=== PATIENT | male | born 1945 | race Caucasian/White ===

== ENCOUNTER 2016-11-03 09:20 | Day surgery (SDC) | payer OTHER ==
[2016-11-03] MEDS ORDERED: NS 500 ML IV 500 ML IV ONE (09:35)
[2016-11-03] MEDS ORDERED: TETRACAINE 0.5% OPHTH 1 DOSE AFFEYE ONE ×2 (09:50→13:17)
[2016-11-03] MEDS ORDERED: VIGAMOX 0.5% OPHTH 1 DOSE AFFEYE ONE ×5 (09:51→13:44)
[2016-11-03] MEDS ORDERED: PROLENSA OPHTH 1 DOSE AFFEYE ONE (10:02)
[2016-11-03] MEDS ORDERED: ALPHAGAN-P OPHTH 1 DOSE AFFEYE ONE (10:03)
[2016-11-03] MEDS ORDERED: MYDRIACIL OPHTH 1 DOSE AFFEYE ONE ×2 (10:04→10:05)
[2016-11-03] MEDS ORDERED: CYCLOGYL 1% OPHTH 1 DOSE OP ONE ×2 (10:04→10:05)
[2016-11-03] MEDS ORDERED: AK-DILATE 2.5% OPHTH 1 DOSE OP ONE ×2 (10:04→10:05)
[2016-11-03] MEDS ORDERED: DIPRIVAN VIAL ONE (10:39)
[2016-11-03] MEDS ORDERED: VERSED ONE (10:39)
[2016-11-03] MEDS ORDERED: BETADINE OPHTH SOLN 5% EACHEYE ONE (13:17)
[2016-11-03] MEDS ORDERED: XYLOCAINE-MPF 1% IJ ONE (13:25)
[2016-11-03] MEDS ORDERED: DUOVISC IO ONE (13:25)
[2016-11-03] MEDS ORDERED: BSS OPHTH (PLAIN) 500 ML with VANCOMYCIN HCL 500 MG VIAL 25 MG, ADRENALINE CHL INJ 1 MG IR ONE ×3 (13:25)
[2016-11-03] MEDS ORDERED: ADRENALINE CHL INJ IJ ONE (13:25)
[2016-11-03 14:10] VITALS: BP 163/78
== END 2016-11-03 14:10 | disposition home or self-care (01) ==
LOC: SURG1 09:20
PROVIDERS: ATTEND Ophthalmology
PROC: 08RK3JZ Replacement of Left Lens with Synthetic Substitute, Percutaneous Approach (ICD-10-PCS; principal; 2016-11-03 17:15)
PROC: 08DK3ZZ Extraction of Left Lens, Percutaneous Approach (ICD-10-PCS; principal; 2016-11-03 17:15)
DX: H25.12 Age-related nuclear cataract, left eye (principal); H25.012 Cortical age-related cataract, left eye; H25.042 Posterior subcapsular polar age-related cataract, left eye
CPT/HCPCS: 99100; A4217; J0170; J2250; J3370; J3490

== ENCOUNTER 2016-11-24 07:06 | Day surgery (SDC) | payer OTHER ==
[2016-11-24] MEDS ORDERED: NS 500 ML IV 500 ML IV ONE (07:29)
[2016-11-24] MEDS ORDERED: TETRACAINE 0.5% OPHTH 1 DOSE AFFEYE ONE ×4 (07:50→09:28)
[2016-11-24] MEDS ORDERED: VIGAMOX 0.5% OPHTH 1 DOSE AFFEYE ONE ×5 (07:51→09:42)
[2016-11-24] MEDS ORDERED: PROLENSA OPHTH 1 DOSE AFFEYE ONE (08:02)
[2016-11-24] MEDS ORDERED: ALPHAGAN-P OPHTH 1 DOSE AFFEYE ONE (08:03)
[2016-11-24] MEDS ORDERED: AK-DILATE 2.5% OPHTH 1 DOSE OP ONE ×4 (08:04→08:07)
[2016-11-24] MEDS ORDERED: MYDRIACIL OPHTH 1 DOSE AFFEYE ONE ×4 (08:04→08:07)
[2016-11-24] MEDS ORDERED: CYCLOGYL 1% OPHTH 1 DOSE OP ONE ×4 (08:04→08:07)
[2016-11-24] MEDS ORDERED: APRESOLINE INJ 20 MG VIAL IVP ONE (08:58)
[2016-11-24] MEDS ORDERED: BETADINE OPHTH SOLN 5% EACHEYE ONE (09:19)
[2016-11-24] MEDS ORDERED: DUOVISC IO ONE ×2 (09:20→09:28)
[2016-11-24] MEDS ORDERED: ADRENALINE CHL INJ IJ ONE ×2 (09:20→09:28)
[2016-11-24] MEDS ORDERED: XYLOCAINE-MPF 1% IJ ONE ×2 (09:20→09:28)
[2016-11-24] MEDS ORDERED: BSS OPHTH (PLAIN) 500 ML with VANCOMYCIN HCL 500 MG VIAL 25 MG, ADRENALINE CHL INJ 1 MG IR ONE ×3 (09:28)
[2016-11-24] MEDS ORDERED: DIPRIVAN VIAL ONE (09:40)
[2016-11-24 10:06] VITALS: BP 198/92
== END 2016-11-24 10:10 | disposition home or self-care (01) ==
LOC: SURG1 07:06
PROVIDERS: ATTEND Ophthalmology
PROC: 08DJ3ZZ Extraction of Right Lens, Percutaneous Approach (ICD-10-PCS; principal; 2016-11-24 08:15)
PROC: 08RJ3JZ Replacement of Right Lens with Synthetic Substitute, Percutaneous Approach (ICD-10-PCS; principal; 2016-11-24 08:15)
DX: H25.11 Age-related nuclear cataract, right eye (principal); H25.011 Cortical age-related cataract, right eye; H25.041 Posterior subcapsular polar age-related cataract, right eye
CPT/HCPCS: 99100; A4217; J0170; J0360; J3370; J3490